=== PATIENT | female | born 1960 | race Hispanic/Latino ===

== ENCOUNTER 2017-09-26 13:18 | Emergency (ER) | payer BC ==
[2017-09-26 13:25] VITALS: TEMP 98.7
--- NOTE | 2017-09-26 15:11 | RAD ---
Date of service: 09/26/2017 PROCEDURE: Left Knee Radiographs. HISTORY: Pain. COMPARISON: None. FINDINGS: BONES: Normal. No fracture. JOINTS: Medial and patellofemoral osteoarthritis. Joint space narrowing. Marginal osteophytes. No articular erosions. JOINT EFFUSION: None. OTHER FINDINGS: None. IMPRESSION: Medial and patellofemoral osteoarthritis.
--- NOTE | 2017-09-26 15:46 | C.PDOC ---
History Of Present Illness 57 year old female patient with hx of arthritis presents to the ER with c/o a pop in the back of her left knee. Patient states she was at the gym and when she did the "side shuffle" she heard a pop behind her left knee. Patient states it is painful to bear weight. Patient came in with MEET wrap on her knee. Time Seen by Provider: 09/26/17 13:30 Chief Complaint (Nursing): Lower Extremity Problem/Injury History Per: Patient History/Exam Limitations: no limitations Onset/Duration Of Symptoms: Hrs Current Symptoms Are (Timing): Still Present Past Medical History Reviewed: Historical Data, Nursing Documentation, Vital Signs Vital Signs: Last Vital Signs Temp 98.7 F 09/26/17 13:20 Pulse 78 09/26/17 16:05 Resp 16 09/26/17 16:05 BP 110/64 09/26/17 16:05 Pulse Ox 99 09/26/17 20:37 - Medical History PMH: Arthritis Family History: States: No Known Family Hx - Social History Hx Alcohol Use: No Hx Substance Use: No - Immunization History Hx Tetanus Toxoid Vaccination: Yes (2011) Hx Influenza Vaccination: No Hx Pneumococcal Vaccination: No Review Of Systems Except As Marked, All Systems Reviewed And Found Negative. Musculoskeletal: Positive for: Leg Pain (pop on left back knee; painful to bear weight ) Physical Exam - Physical Exam Appears: Well, Non-toxic, No Acute Distress Skin: Normal Color, Warm, Dry Head: Atraumatic, Normacephalic Cardiovascular: Rhythm Regular Respiratory: Normal Breath Sounds Extremity: Tenderness (diffuse tenderness on left knee), Capillary Refill (<2 sec), No Deformity, No Swelling, No Other (erythema) Extremity: Bilateral: Atraumatic Pulses: Left Dorsalis Pedis: Normal, Right Dorsalis Pedis: Normal Neurological/Psych: Oriented x3, Normal Speech, Normal Motor, Normal Sensation, Normal Reflexes Gait: Steady ED Course And Treatment O2 Sat by Pulse Oximetry: 99 (RA) Pulse Ox Interpretation: Normal - Other Rad XR knee X-Ray: Read By Radiologist Interpretation: Accession No. : [id number]. Patient Name / ID : CAITLIN Echavarria / [id number]. Exam Date : 09/26/2017 14:32:39 ( Approved ). Study Comment : Sex / Age : F / 57Y. Creator : Emiliano Walker MD. Dictator : Emiliano Walker MD. Medicine Man : Physical Trainer : Emiliano Walker MD. Approver2 : Report Date : 09/26/2017 15:08:47. My Comment : . Date of service: 09/26/2017. PROCEDURE: Left Knee Radiographs. HISTORY: Pain. COMPARISON: None. FINDINGS: BONES: Normal. No fracture. JOINTS: Medial and patellofemoral osteoarthritis. Joint space narrowing. Marginal osteophytes. No articular erosions. JOINT EFFUSION: None. OTHER FINDINGS: None. IMPRESSION: Medial and patellofemoral osteoarthritis. Progress Note: Impression: left knee pain / sprain. Plans: -- left knee XR, knee immobilizer, patient has her own crutches. Reassess: Patient is resting comfortably. However patient requests knee MRI. Patient was explained that MRI is not a procedure that routinely being ordered in ED. Patient was instructed to follow up with Orthopedist. Patient feels comfortable being discharged home. Patient is advised to f/u with Ortho in 1-2 days. Disposition - Disposition Disposition: HOME/ ROUTINE Disposition Time: 15:43 Condition: STABLE Additional Instructions: Follow up with your Orthopedist within 1-2 days. Return to ED if feel worse. Prescriptions: Ibuprofen [Motrin Tab] 600 mg PO Q8 #30 tab Instructions: Knee Sprain (DC) Forms: QR Artist (Yoruba) - Clinical Impression Clinical Impression: Knee sprain - PA / PLANNING MANAGEMENT IT SPECIALIST / Resident Statement / has reviewed & agrees with the documentation as recorded. - Scribe Statement The provider has reviewed the documentation as recorded by the Medhat Reynolds Do All medical record entries made by the Scribe were at my direction and personally dictated by me. I have reviewed the chart and agree that the record accurately reflects my personal performance of the history, physical exam, medical decision making, and the department course for this patient. I have also personally directed, reviewed, and agree with the discharge instructions and disposition.
[2017-09-26 16:05] VITALS: BP 110/64; PULSE 78; RESP 16
[2017-09-26 18:04] VITALS: O2SAT 99
== END 2017-09-26 16:17 | disposition home or self-care (01) ==
LOC: C.ER 13:18
DX: S83.92XA Sprain of unspecified site of left knee, initial encounter (principal); X58.XXXA Exposure to other specified factors, initial encounter; Y92.39 Other specified sports and athletic area as the place of occurrence of the external cause

== ENCOUNTER 2018-05-16 13:12 | Outpatient (CLI) | payer BC | END 2018-05-16 13:13 | disposition home or self-care (01) | LOC: C.MAMMO 13:13 | DX: Z12.31 Encounter for screening mammogram for malignant neoplasm of breast (principal) ==

== ENCOUNTER 2018-06-01 11:41 | Outpatient (CLI) | payer BC | END 2018-06-01 11:42 | disposition home or self-care (01) | LOC: C.MAMMO 11:41 | DX: R92.8 Other abnormal and inconclusive findings on diagnostic imaging of breast (principal) ==